=== PATIENT | female | born 1960 | race Asian ===

== ENCOUNTER → 2016-06-20 | Outpatient (CLI) | payer BC ==
[~2016-06-20] MED LIST: BENZ100C84 PO; FERR325T5 PO; FLUT0.15 NAE; MECL1TAB42 PO; MULT-506 PO
[2016-06-20 16:41] LABS: BASO % 1.1 %; BASO ABS # 0.06 K/uL (0-0.2); COMPLETE YES; EOS % 0.9 %; IG% 0.2 %; LYMPH ABS # 1.92 K/uL (1.2-3.4); MEAN CORPUSCULAR HEMOGLOBIN 30.2 pg (25-34); MEAN CORPUSCULAR HGB CONC 35.1 g/dl (32-36); MONO % 6.6 %; NEUT % 55.2 %; PLATELET COUNT 311 K/uL (130-400); WHITE BLOOD COUNT 5.34 K/uL (4.8-10.8)
[2016-06-20 19:12] LABS: ALT/SGPT 46 U/L (12-78); AST/SGOT 24 U/L (15-37); BLOOD UREA NITROGEN 9 mg/dl (7-18); BUN/CREATININE RATIO 10.8 (10-20); CALCIUM 9.3 mg/dl (8.5-10.1); CARBON DIOXIDE 25 mmol/L (21-32); CHLORIDE 104 mmol/L (98-107); CREATININE 0.79 mg/dl (0.60-1.20); GLUCOSE 98 mg/dl (70-99); POTASSIUM 4.1 mmol/L (3.5-5.1); SODIUM 140 mmol/L (136-145)
[2016-06-20 19:20] LABS: ALB/GLOB RATIO 1.3 (0.9-2); ALKALINE PHOSPHATASE 59 U/L (45-117); FERRITIN 50.2 ng/ml (8.0-388.0)
== END | disposition home or self-care (01) ==
LOC: C.LAB1850 15:21
PROVIDERS: ATTEND Internal Medicine
DX: D50.9 Iron deficiency anemia, unspecified (principal); R10.11 Right upper quadrant pain

== ENCOUNTER → 2016-09-12 | Outpatient (CLI) | payer BC ==
--- NOTE | 2016-09-12 16:44 | MAMMOGRAPHY REPORT ---
BILATERAL DIGITAL SCREENING MAMMOGRAM WITH CAD: 09/12/2016 CLINICAL HISTORY: Routine screening. TECHNIQUE: Bilateral CC and MLO views were obtained. Current study was also evaluated with a Comput er Aided Detection (CAD) system. COMPARISON: Comparison is made to exams dated: 09/07/2015 mammogram, 06/21/2015 mammogram, 09/13/2014 mammogram, 09/06/2014 mammogram, 09/04/2013 mammogram, and 09/03/2012 mammogram - [facility] enter. BREAST COMPOSITION: The tissue of both breasts is extremely dense, which lowers the sensitivity of mammography. FINDINGS: There is a stable ribbon shaped metallic biopsy marker in the lower inner quadrant of the right breast. No obvious new mass, architectural distortion or cluster of microcalcifications is se en. IMPRESSION: ACR BI-RADS CATEGORY 1: NEGATIVE 1. Stable bilateral mammograms, without mammographic evidence of malignancy. A 1 year screening kusum mogram is recommended. 2. During this screening appointment, the patient reported right axillary tenderness to our mammogr aphy technologist. No lymphadenopathy is visualized on the right MLO view. However, clinical corre lation is recommended and if indicated, right axillary ultrasound may be useful. The patient will receive written notification of the results. Approximately 10% of breast cancers are not detected with mammography. A negative mammographic repor t should not delay biopsy if a clinically suggestive mass is present. Jeanna Espinoza M.D. ay/:09/12/2016 16:04:47 Public Health Training Assistant: Nisha WASSERMAN)([place]), [facility] letter sent: Normal 1/2 BI-RADS Code: ACR BI-RADS Category 1: Negative
== END | disposition home or self-care (01) ==
LOC: C.MAMM 13:52
PROVIDERS: ATTEND Obstetrics & Gynecology
DX: Z12.31 Encounter for screening mammogram for malignant neoplasm of breast (principal)

== ENCOUNTER → 2016-09-28 | Outpatient (CLI) | payer BC | END | disposition home or self-care (01) | LOC: C.PAPS 11:34 | PROVIDERS: ATTEND Obstetrics & Gynecology | DX: Z01.419 Encounter for gynecological examination (general) (routine) without abnormal findings (principal) ==

== ENCOUNTER → 2016-10-08 | Day surgery (SDC) | payer BC ==
[2016-10-02 15:06] VITALS: Ht 162.6 cm; Wt 59.1 kg
[~2016-10-08] VITALS: Ht 162.6 cm; Wt 59.1 kg
[~2016-10-08] MED LIST changes: -FERR325T5 PO; +LIDOCAINE HCL 2% 2 ML VIAL (20MG/ML) ONE; +PROPOFOL IV EMULSION 10 MG/ML 20 ML VIAL IV ONE; +SODIUM CHLORIDE 0.9% 500ML 500 ML IV ONE
[2016-10-08 11:36] VITALS: TEMP 36.9
--- NOTE | 2016-10-08 11:46 | Endo History and Physical ---
History & Physical Date of Service: Oct 08, 2016. Chief Complaint: RUQ Pain, Screening Referring Physician: History of Present Illness 56 yo female who presents for Screening colonoscopy and EGD secondary to RUQ abdominal pain. Past Surgical History Hx Cardiac Surgery: No Hx Internal Defibrillator: No Hx Pacemaker: No Hx Abdominal Surgery: Yes (UTERINE POLYP REMOVAL, APPY) Hx of Implantable Prosthesis: No Hx Post-Op Nausea and Vomiting: No Hx Cancer Surgery: No Hx Thoracic Surgery: No Hx Orthopedic: No Hx Urinary Tract Surgery: No Family History None Social History Smoking Status: Never Smoker Hx Substance Use: No Hx Alcohol Use: Yes (1-2 DRINKS 3 X WEEKLY) Allergies Coded Allergies: Aspirin (Verified Allergy, Intermediate, SWELLING OF LIPS, 10/08/16) Current Medications Reported Home Medications Medications Dose Route/Sig Max Daily Dose Days Date Category Multivitamin (Multivitamins) Tab 1 Tab PO HS 10/02/16 Reported Flonase Allergy Relief (Fluticasone Propionate (Nasal)) 50 Mcg/Act Spr 1 [place] LYN DAILY PRN 10/02/16 Reported Tessalon Perles (Benzonatate) 100 Mg Cap 100 Mg PO DIRECTED PRN 10/02/16 Reported Meclizine Hcl 25 Mg Tab 25 Mg PO Q6 PRN 08/21/14 Rx Vital Signs Weight (Kilograms): 59.09 Height (Feet): 5 Height (Inches): 4 Date Time Temp Pulse Resp B/P (MAP) Pulse Ox O2 Delivery O2 Flow Rate FiO2 10/08/16 11:36 36.9 62 18 147/91 (109) 97 Room Air Physical Exam General Appearance: WD/WN, no apparent distress Respiratory/Chest: Auscultation: breath sounds normal Cardiovascular: Heart Auscultation: RRR Abdomen: Bowel Sounds: normal Inspection & Palpation: soft, non-distended, no tenderness, guarding & rebound Assessment and Plan Assessment: 56 yo female who presents for Screening colonoscopy and EGD secondary to RUQ abdominal pain. Plan: Proceed with EGD and colonoscopy.
--- NOTE | 2016-10-08 12:10 | Discharge Instructions ---
Endoscopy Patient Instructions Date / Procedure(s) Performed Oct 08, 2016. Colonoscopy, EGD Allergy Information Coded Allergies: Aspirin (Verified Allergy, Intermediate, SWELLING OF LIPS, 10/08/16) Discharge Date / Findings Oct 08, 2016. EGD: Gastritis s/p biopsies, Hiatal hernia Colonoscopy: Colon polyp, Diverticulosis, Internal hemorrhoids Medication Instructions OK to resume all medications today as prescribed Medications Dose Route/Sig Max Daily Dose Days Date Category Multivitamin (Multivitamins) Tab 1 Tab PO HS 10/02/16 Reported Flonase Allergy Relief (Fluticasone Propionate (Nasal)) 50 Mcg/Act Spr 1 [place] LYN DAILY PRN 10/02/16 Reported Tessalon Perles (Benzonatate) 100 Mg Cap 100 Mg PO DIRECTED PRN 10/02/16 Reported Meclizine Hcl 25 Mg Tab 25 Mg PO Q6 PRN 08/21/14 Rx Provider Instructions Activity Restrictions - No exercising or heavy lifting for 24 hours. - Do not drink alcohol the day of the procedure. - Do not drive a car or operate machinery until the day after the procedure. - Do not make any important decisions or sign important papers in 24 hours after the procedure. Following Day: - Return to full activity which may include returning to work/school. Diet Start your diet with liquids and light foods (jello, soup, juice, toast). Then eat your usual diet if not nauseated. Treatment For Common After Affects For mild abdominal pain, bloating, or excessive gas: - Rest - Eat lightly - Lie on right side Follow-Up Information Follow-up with Pro as scheduled Anesthesia Information What You Should Know You have had a procedure that required some medicine to reduce anxiety and discomfort. This treatment is called moderate sedation. After receiving the treatment, you may be sleepy, but you will be able to breathe on your own. The effects of the treatment may last for several hours. Follow these instructions along with Activity/Diet recommendations noted above: * Do NOT do anything where dizziness or clumsiness would be dangerous. * Rest quietly at home today, then you can be up and about tomorrow. * Have a responsible person stay with you the rest of today. * You may have had an I.V. today. If so, you may take the dressing off later today. Recommendations Call your doctor if: * Trouble breathing * Continuous vomiting for more than 24 hours * Temperature above 101 degrees * Severe abdominal pain or bloating * Pain not relieved by pain medicine ordered * There is increased drainage or redness from any incision * A large amount of rectal bleeding greater than 2-3 tablespoons. (If you had a polyp/s removed or have hemorrhoids, a small amount of blood - from the rectum is to be expected.) * You have any unanswered questions or concerns. IN THE EVENT OF A SERIOUS EMERGENCY, GO TO THE NEAREST EMERGENCY ROOM Your discharge instructions were prepared by provider Darshan Salmeron. Patient Instructions Signature Page Lexii Lan Patient (or Guardian) Signature/Date: I have read and understand the instructions given to me by my caregivers. Caregiver/RN/Doctor Signature/Date: The above-named patient and/or guardian has received patient instructions on this date. + Original Patient Signature Page (only) stays with chart. Please make copy for patient.
--- NOTE | 2016-10-08 12:16 | GI REPORT ---
Procedure Date: 10/08/2016 11:47 AM Procedure: Upper GI endoscopy Indications: Abdominal pain in the right upper quadrant Medicines: Monitored Anesthesia Care Complications: No immediate complications. Estimated Blood Loss: Estimated blood loss: none. Procedure: Pre-Anesthesia Assessment: - Prior to the procedure, a History and Physical was performed, and patient medications and allergies were reviewed. The patient's tolerance of previous anesthesia was also reviewed. The risks and benefits of the procedure and the sedation options and risks were discussed with the patient. All questions were answered, and informed consent was obtained. Prior Anticoagulants: The patient has taken no previous anticoagulant or antiplatelet agents. ASA Grade Assessment: I - A normal, healthy patient. After reviewing the risks and benefits, the patient was deemed in satisfactory condition to undergo the procedure. After obtaining informed consent, the endoscope was passed under direct vision. Throughout the procedure, the patient's blood pressure, pulse, and oxygen saturations were monitored continuously. The scope was introduced through the mouth, and advanced to the second part of duodenum. The upper GI endoscopy was accomplished without difficulty. The patient tolerated the procedure well. Findings: The esophagus was normal. A small hiatus hernia was present. Localized mild inflammation characterized by erosions was found in the gastric antrum. Biopsies were taken with a cold forceps for histology. The examined duodenum was normal. Impression: - Normal esophagus. - Small hiatus hernia. - Gastritis. Biopsied. - Normal examined duodenum. Recommendation: - Resume previous diet. - Continue present medications. - Await pathology results. - Return to primary care physician as previously scheduled. Darshan Salmeron DO 10/08/2016 12:15:50 PM This report has been signed electronically. Note Initiated On: 10/08/2016 11:47 AM I attest to the content of the Intraoperative Record and orders documented therein, exceptions below
--- NOTE | 2016-10-08 12:18 | GI REPORT ---
Procedure Date: 10/08/2016 11:53 AM Procedure: Colonoscopy Indications: Screening for colorectal malignant neoplasm Medicines: Monitored Anesthesia Care Complications: No immediate complications. Estimated Blood Loss: Estimated blood loss: none. Procedure: Pre-Anesthesia Assessment: - Prior to the procedure, a History and Physical was performed, and patient medications and allergies were reviewed. The patient's tolerance of previous anesthesia was also reviewed. The risks and benefits of the procedure and the sedation options and risks were discussed with the patient. All questions were answered, and informed consent was obtained. Prior Anticoagulants: The patient has taken no previous anticoagulant or antiplatelet agents. ASA Grade Assessment: I - A normal, healthy patient. After reviewing the risks and benefits, the patient was deemed in satisfactory condition to undergo the procedure. After I obtained informed consent, the scope was passed under direct vision. Throughout the procedure, the patient's blood pressure, pulse, and oxygen saturations were monitored continuously. The scope was introduced through the anus and advanced to the terminal ileum. The colonoscopy was performed without difficulty. The patient tolerated the procedure well. The quality of the bowel preparation was excellent. The terminal ileum, ileocecal valve, appendiceal orifice, and rectum were photographed. Findings: Scattered small-mouthed diverticula were found in the entire colon. A 5 mm polyp was found in the sigmoid colon. The polyp was pedunculated. The polyp was removed with a hot snare. Resection and retrieval were complete. Non-bleeding internal hemorrhoids were found during retroflexion. The hemorrhoids were small. Impression: - Diverticulosis in the entire examined colon. - One 5 mm polyp in the sigmoid colon, removed with a hot snare. Resected and retrieved. - Non-bleeding internal hemorrhoids. Recommendation: - Resume previous diet. - Continue present medications. - Repeat colonoscopy for surveillance based on pathology results. - Return to primary care physician as previously scheduled. Darshan Salmeron DO 10/08/2016 12:17:45 PM This report has been signed electronically. Note Initiated On: 10/08/2016 11:53 AM I attest to the content of the Intraoperative Record and orders documented therein, exceptions below
[2016-10-08 12:42] VITALS: BP 139/84; PULSE 55; O2SAT 99
--- NOTE | 2016-10-08 13:11 | Anesthesiology Progress Note ---
Anesthesia Post Op Note Date & Time Oct 08, 2016 at 13:11 Vital Signs Pain Intensity: 0 Vital Signs Past 12 Hours Date Time Temp Pulse Resp B/P (MAP) Pulse Ox O2 Delivery O2 Flow Rate FiO2 10/08/16 12:42 55 18 139/84 (102) 99 Room Air 10/08/16 12:29 18 131/89 (103) 97 Room Air 10/08/16 12:12 65 18 113/70 (84) 98 Room Air 10/08/16 11:36 36.9 62 18 147/91 (109) 97 Room Air Notes Mental Status: alert / awake / arousable, participated in evaluation Pt Amnestic to Procedure: Yes Nausea / Vomiting: adequately controlled Pain: adequately controlled Airway Patency, RR, SpO2: stable & adequate BP & HR: stable & adequate Hydration State: stable & adequate Anesthetic Complications: no major complications apparent
== END | disposition home or self-care (01) ==
LOC: C.GI 10:57
PROVIDERS: ATTEND Internal Medicine
DX: R10.11 Right upper quadrant pain (principal); D12.5 Benign neoplasm of sigmoid colon; K64.8 Other hemorrhoids; K57.90 Diverticulosis of intestine, part unspecified, without perforation or abscess without bleeding; K44.9 Diaphragmatic hernia without obstruction or gangrene; K29.70 Gastritis, unspecified, without bleeding; Z98.890 Other specified postprocedural states; Z90.89 Acquired absence of other organs; Z68.22 Body mass index [BMI] 22.0-22.9, adult; Z98.818 Other dental procedure status

== ENCOUNTER → 2017-08-08 | Outpatient (CLI) | payer OTHER ==
[~2017-08-08] MED LIST changes: -LIDOCAINE HCL 2% 2 ML VIAL (20MG/ML) ONE; -PROPOFOL IV EMULSION 10 MG/ML 20 ML VIAL IV ONE; -SODIUM CHLORIDE 0.9% 500ML 500 ML IV ONE
[2017-08-08 10:15] LABS: BASO ABS # 0.07 K/uL (0-0.2); EOS % 2.6 %; EOS ABS # 0.09 K/uL (0-0.5); HEMATOCRIT 43.6 % (37-47); HEMOGLOBIN 14.9 g/dL (12.0-16.0); LYMPH % 43.6 %; LYMPH ABS # 1.53 K/uL (1.2-3.4); MEAN CELL VOLUME 87.2 fL (80-100); MEAN CORPUSCULAR HEMOGLOBIN 29.8 pg (25-34); MEAN CORPUSCULAR HGB CONC 34.2 g/dl (32-36); MEAN PLATELET VOLUME 9.7 fL (7.4-10.4); MONO % 8.5 %; NEUT % 43.3 %; NEUT ABS # 1.52 K/uL (1.4-6.5); PLATELET COUNT 283 K/uL (130-400); RED CELL DISTRIBUTION WIDTH CV 12.7 % (11.5-14.5); RED CELL DISTRIBUTION WIDTH SD 40.7 fL (36.4-46.3); WHITE BLOOD COUNT 3.51 K/uL (4.8-10.8)
[2017-08-08 10:46] LABS: ALBUMIN 4.1 gm/dl (3.4-5.0); ALT/SGPT 39 U/L (12-78); AST/SGOT 26 U/L (15-37); BLOOD UREA NITROGEN 11 mg/dl (7-18); CALCIUM 9.2 mg/dl (8.5-10.1); CARBON DIOXIDE 30 mmol/L (21-32); CREATININE 0.75 mg/dl (0.60-1.20); GLUCOSE 105 mg/dl (70-99); POTASSIUM 3.9 mmol/L (3.5-5.1); SODIUM 136 mmol/L (136-145)
[2017-08-08 10:48] LABS: ALKALINE PHOSPHATASE 71 U/L (45-117); TOTAL PROTEIN 7.6 gm/dl (6.4-8.2)
== END | disposition home or self-care (01) ==
LOC: C.LAB1850 09:13
PROVIDERS: ATTEND Internal Medicine
DX: Z00.00 Encounter for general adult medical examination without abnormal findings (principal)

== ENCOUNTER → 2017-08-28 | Outpatient (CLI) | payer OTHER ==
--- NOTE | 2017-08-28 08:15 | DIAGNOSTIC IMAGING REPORT ---
ABDOMEN COMPLETE (US) CLINICAL HISTORY: 57 years-old Female presenting with R10.11 Abdominal discomfort in right upper quadrant. TECHNIQUE: Real-time grayscale and limited color Doppler ultrasound imaging of the abdomen was performed. COMPARISON: 11/03/2015. FINDINGS: Pancreas: Visualized portions of the pancreatic head and body normal. Liver: Normal echogenicity and echotexture. The liver measures 14.8 cm in maximal sagittal dimension. No sonographic evidence of hepatic mass. Biliary: No intrahepatic biliary ductal dilatation. Common bile duct measures up to 6 mm in diameter. Gallbladder: No evidence of gallstones, gallbladder wall thickening, gallbladder distention, or pericholecystic fluid or inflammatory change. Spleen: Normal in echogenicity and size, measuring 8.2 cm in length. Kidneys: Normal in size and echogenicity. Right kidney measures 11.0 cm, and left kidney measures 10.8 cm. No hydronephrosis. Vasculature: Visualized portions of the IVC and abdominal aorta normal. Ascites: None. IMPRESSION: No sonographic abnormality in the abdomen. No biliary ductal dilatation or cholelithiasis. Electronically signed by: Pernell Isbell M.D. 08/28/2017 8:14 AM Dictated Date/Time: 08/28/2017 8:05 AM
== END | disposition home or self-care (01) ==
LOC: C.ULTR 07:31
PROVIDERS: ATTEND Internal Medicine
DX: R10.11 Right upper quadrant pain (principal)